=== PATIENT | male | born 1975 | race Caucasian/White ===

== ENCOUNTER 2016-08-12 23:15 | Emergency (ER) | payer SELFPAY ==
--- NOTE | 2016-08-12 23:27 | EDM.PDOC ---
ED HPI GENERAL MEDICAL PROBLEM - General Chief Complaint: Lower Extremity Injury/Pain Stated Complaint: UNK Time Seen by Provider: 08/12/16 23:27 Source of Information: Reports: Patient - History of Present Illness INITIAL COMMENTS - FREE TEXT/NARRATIVE: HISTORY AND PHYSICAL: History of present illness: []Patient presents with left knee pain and swelling for 2 days increasing in severity did twist his left knee actually rotating on his left knee Adson's pain he has long history of bursitis concerning the left knee no actual trauma to the lower extremity whatsoever no redness warmth open lesion or exudate entire limb is neurovascularly intact hip and ankle and affected Denies medication chronic illness or disease Review of systems: As per history of present illness and below otherwise all systems reviewed and negative. Past medical history: As per history of present illness and as reviewed below otherwise noncontributory. Surgical history: As per history of present illness and as reviewed below otherwise noncontributory. Social history: No reported history of drug or alcohol abuse. Family history: As per history of present illness and as reviewed below otherwise noncontributory. Physical exam: HEENT: Atraumatic, normocephalic, pupils reactive, negative for conjunctival pallor or scleral icterus, mucous membranes moist, throat clear, neck supple, nontender, trachea midline. Lungs: Clear to auscultation, breath sounds equal bilaterally, chest nontender. Heart: S1S2, regular, negative for clicks, rubs, or JVD. Abdomen: Soft, nondistended, nontender. Negative for masses or hepatosplenomegaly. Negative for costovertebral tenderness. Pelvis: Stable nontender. Genitourinary: Deferred. Rectal: Deferred. Extremities: Atraumatic, negative for cords or calf pain. Neurovascular unremarkable. Neuro: Awake, alert, oriented. Cranial nerves II through XII unremarkable. Cerebellum unremarkable. Motor and sensory unremarkable throughout. Exam nonfocal. Diagnostics: []Knee 3 views CBC uric acid Therapeutics: []Toradol 60 IM Solu-Medrol 125 mg im Indomethacin Colchrys Impression: []Left knee pain Acute gout Definitive disposition and diagnosis as appropriate pending reevaluation and review of above. 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 Pain Score (Numeric/FACES): 10 - Related Data Allergies Allergy/AdvReac Type Severity Reaction Status Date / Time No Known Allergies Allergy Verified 08/12/16 23:18 Home Meds: Home Meds [place] Carbonate 100 cap PO BID 08/12/16 [History] QUEtiapine [SEROquel] 100 mg PO BID 08/12/16 [History] Past Medical History Other HEENT History: left eye surgery Social & Family History - Tobacco Use Smoking Status *Q: Never Smoker - Alcohol Use Days Per Week of Alcohol Use: 7 Number of Drinks Per Day: 6 Total Drinks Per Week: 42 - Recreational Drug Use Recreational Drug Use: No Drug Use in Last 12 Months: Yes Recreational Drug Type: Reports: Kevin, Ida Review of Systems - Review of Systems Review Of Systems: ROS reveals no pertinent complaints other than HPI. ED EXAM, GENERAL - Physical Exam Exam: See Below Course - Vital Signs Last Recorded V/S: Last Vital Signs Temp 37.1 C 08/13/16 00:32 Pulse 97 08/13/16 00:32 Resp 20 08/13/16 00:32 BP 140/78 08/13/16 00:32 Pulse Ox 99 08/13/16 00:32 - Orders/Labs/Meds Orders: Active Orders 24 hr Category Date Time Status Knee 1V or 2V Lt [CR] Stat Exams 08/12/16 23:26 Taken Labs: Laboratory Tests 08/12/16 08/12/16 Range/Units 23:52 23:52 WBC 9.41 (4.0-11.0) K/uL RBC 4.26 L (4.50-5.90) M/uL Hgb 13.2 (13.0-17.0) g/dL Hct 39.9 (38.0-50.0) % MCV 93.7 (80.0-98.0) fL MCH 31.0 (27.0-32.0) pg MCHC 33.1 (31.0-37.0) g/dL RDW Std Deviation 46.2 (28.0-62.0) fl RDW Coeff of Angely 14 (11.0-15.0) % Plt Count 176 (150-400) K/uL MPV 10.40 (7.40-12.00) fL Neut % (Auto) 67.7 (48.0-80.0) % Lymph % (Auto) 17.9 (16.0-40.0) % Dawes % (Auto) 12.8 (0.0-15.0) % Eos % (Auto) 1.4 (0.0-7.0) % Baso % (Auto) 0.2 (0.0-1.5) % Neut # (Auto) 6.4 H (1.4-5.7) K/uL Lymph # (Auto) 1.7 (0.6-2.4) K/uL Dawes # (Auto) 1.2 H (0.0-0.8) K/uL Eos # (Auto) 0.1 (0.0-0.7) K/uL Baso # (Auto) 0.0 (0.0-0.1) K/uL Nucleated RBC % 0.0 /100WBC Nucleated RBCs # 0 K/uL Uric Acid 8.3 H (2.1-7.4) mg/dL Departure - Departure Time of Disposition: 00:42 Disposition: Home, Self-Care 01 Condition: Good Clinical Impression: Acute gout - Discharge Information Forms: ED Department Discharge Additional Instructions: Medication as prescribed Return symptoms persist or worsen Follow-up with primary care in 2 weeks [facility] - Primary Care [address] [place] [address] The following information is given to patients seen in the emergency department who are being discharged to home. This information is to outline your options for follow-up care. We provide all patients seen in our emergency department with a follow-up referral. The need for follow-up, as well as the timing and circumstances, are variable depending upon the specifics of your emergency department visit. If you don't have a primary care physician on staff, we will provide you with a referral. We always advise you to contact your personal physician following an emergency department visit to inform them of the circumstance of the visit and for follow-up with them and/or the need for any referrals to a consulting specialist. The emergency department will also refer you to a specialist when appropriate. This referral assures that you have the opportunity for follow-up care with a specialist. All of these measure are taken in an effort to provide you with optimal care, which includes your follow-up. Under all circumstances we always encourage you to contact your private physician who remains a resource for coordinating your care. When calling for follow-up care, please make the office aware that this follow-up is from your recent emergency room visit. If for any reason you are refused follow-up, please contact the [facility] emergency department at and asked to speak to the emergency department charge nurse. - My Orders Last 24 Hours: My Active Orders 08/12/16 23:26 Knee 1V or 2V Lt [CR] Stat - Assessment/Plan Last 24 Hours: My Active Orders 08/12/16 23:26 Knee 1V or 2V Lt [CR] Stat
[2016-08-13] MEDS ORDERED: methylPREDNISolone Sodium Succinate 125 MG/2 ML SDV IM ONE (00:43)
[2016-08-13 01:01] VITALS: BP 118/64
--- NOTE | 2016-08-13 16:08 | CR ---
EXAM DATE: 08/12/16 PATIENT'S AGE: 41 Patient: RIGOBERTO MENDEZ Facility: [place], [place] Site . Site : [id number] Study: XRay Knee Left [id number]/[id number] 11:44:53 PM Ordering Physician: Myra Hinkle Final Report: INDICATION: left knee pain. TECHNIQUE: Knee radiograph 2 views left COMPARISON: None FINDINGS: Bones: Alignment is normal. On the lateral exam, the cortex of the fibular head is not well defined. Joint spaces: Unremarkable. No knee effusion is seen on the lateral exam. Soft tissues: Unremarkable. No radiopaque foreign bodies are seen. IMPRESSION: 1. On the lateral exam, the cortex of the fibular head is not well defined. This can be due to an osteophyte but correlation with physical exam for focal tenderness, especially if there is history of trauma, to exclude a fracture. Dictated by: Michael Tiwari MD @ 08/12/2016 23:48:05 (Electronic Signature) Report Signed by Proxy. HAIM
== END 2016-08-13 00:55 | disposition home or self-care (01) ==
LOC: MW.ED 23:15
DX: M25.561 Pain in right knee (principal); M10.9 Gout, unspecified; Z98.890 Other specified postprocedural states
CPT/HCPCS: 36415; 73560; 84550; 85025; 96374; 99284; J2930; 99282

== ENCOUNTER 2017-07-03 07:49 | Emergency (ER) | payer MEDICAID ==
--- NOTE | 2017-07-03 08:16 | EDM.PDOC ---
ED HPI GENERAL MEDICAL PROBLEM - General Chief Complaint: Behavioral/Psych Stated Complaint: MENTAL HEALTH Time Seen by Provider: 07/03/17 07:56 - History of Present Illness INITIAL COMMENTS - FREE TEXT/NARRATIVE: HISTORY AND PHYSICAL: History of present illness: The patient is a 42-year-old male who is here with police after he was found by them standing on a car in a parking lot howling at other cars. The patient says he does have a history of paranoia and is supposed to be a medications including lithium and Seroquel which he has not taken for at least one year due to his "inability to pay for them". He also tells me he has a history of hypertension for which he used to take a beta geovani and one other medication but he again has not taken that medication for at least one year. He denies suicidal or homicidal ideation here in the ED but does admit to me that he drank alcohol last night which may have contributed to some of his behavior today. He tells nursing that he does have a history of paranoia and again this may have played into why he is here for his behavior this morning. When police arrived he stated to them that he wants to get back on his medications and asked to come here for evaluation. Patient denies chest pain shortness of breath abdominal pain vomiting or diarrhea and has been passing his urine normally. When I query him about his hydration he says he did not drink much water last night but did drink alcohol.. The patient tells me he does eat a lot of high sodium containing foods including Ramen noodles on a regular basis and knows that is bad for his blood pressure he says he does not know how to connect for any care as an outpatient and when asked if he would like resources for that he agrees. Patient denies any head neck or back pain. He has no numbness or tingling or weakness in his extremities or pain in his extremities. Review of systems: As per history of present illness and below otherwise all systems reviewed and negative. Past medical history: As per history of present illness and as reviewed below otherwise noncontributory. Surgical history: As per history of present illness and as reviewed below otherwise noncontributory. Social history: No reported history of drug or alcohol abuse. Family history: As per history of present illness and as reviewed below otherwise noncontributory. Physical exam: General: Well-developed well-nourished man who is nontoxic beaking calmly and quietly in the ED and is very cooperative. His vital signs are noted by me. HEENT: Atraumatic, normocephalic, pupils reactive, negative for conjunctival pallor or scleral icterus, mucous membranes moist, throat clear, neck supple, nontender, trachea midline. Lungs: Clear to auscultation, breath sounds equal bilaterally, chest nontender. Heart: S1S2, regular rhythm slightly tachycardic rate on my evaluation, negative for clicks, rubs, or JVD. Abdomen: Soft, nondistended, nontender. Negative for masses or hepatosplenomegaly. NABS Pelvis: Stable nontender. Genitourinary: Deferred. Rectal: Deferred. Extremities: Atraumatic, negative for cords or calf pain. Neurovascular unremarkable. No pedal edema full range of motion of all extremities and no palpable deformities or tenderness. Neuro: Awake, alert, oriented. Cranial nerves II through XII unremarkable. Cerebellum unremarkable. Motor and sensory unremarkable throughout. Exam nonfocal. Skin: No evidence of any diaphoresis, turgor is normal and there is no evidence of any overt rashes or lesions Diagnostics: Accu-Chek Therapeutics: I discussed with the patient his recent alcohol use and trying to refrain from doing that going forward and to push hydration with water and Gatorade today. I also advised him to try to reduce or stop eating high sodium containing foods such as Ramen noodles and other processed foods as this is contributing to his blood pressure. In the ED he is denying chest pain shortness of breath headache neurosensory changes abdominal issues or urinary complaints and I strongly advised him to connect with one of our clinic providers to get back on blood pressure medications as well as his other meds. We will give him resources for [facility] as well as this is one of the desires of the patient in my conversation with him to get back on his medications. He is currently not exhibiting any suicidal or homicidal ideation. Police the bedside inform me he is not under arrest for his behaviors this morning and they're happy to facilitate his disposition. Impression: Encounter for medical screening exam for inappropriate behavior, stable; history of paranoia and hypertension with medication noncompliance stable Definitive disposition and diagnosis as appropriate pending reevaluation and review of above. - Related Data Allergies Allergy/AdvReac Type Severity Reaction Status Date / Time No Known Allergies Allergy Verified 07/03/17 07:56 Home Meds: Home Meds [place] Carbonate 100 cap PO BID 08/12/16 [History] QUEtiapine [SEROquel] 100 mg PO BID 08/12/16 [History] Past Medical History HEENT History: Reports: Other (See Below) Other HEENT History: left eye surgery Cardiovascular History: Reports: Hypertension Respiratory History: Reports: None Gastrointestinal History: Reports: None Genitourinary History: Reports: None Musculoskeletal History: Reports: None Neurological History: Reports: None Psychiatric History: Reports: Other (See Below) Other Psychiatric History: Paronia Endocrine/Metabolic History: Reports: None Hematologic History: Reports: None Immunologic History: Reports: None Oncologic (Cancer) History: Reports: None Dermatologic History: Reports: None - Infectious Disease History Infectious Disease History: Reports: Chicken Pox - Past Surgical History Head Surgeries/Procedures: Reports: None HEENT Surgical History: Reports: None Cardiovascular Surgical History: Reports: None Respiratory Surgical History: Reports: None GI Surgical History: Reports: None Male Surgical History: Reports: None Endocrine Surgical History: Reports: None Neurological Surgical History: Reports: None Musculoskeletal Surgical History: Reports: None Oncologic Surgical History: Reports: None Dermatological Surgical History: Reports: None Social & Family History - Family History Family Medical History: Noncontributory - Tobacco Use Smoking Status *Q: Never Smoker Second Hand Smoke Exposure: No - Caffeine Use Caffeine Use: Reports: None - Recreational Drug Use Recreational Drug Use: Yes Recreational Drug Type: Reports: Methamphetamine Recreational Drug Use Frequency: Monthly ED ROS GENERAL - Review of Systems Review Of Systems: ROS reveals no pertinent complaints other than HPI. ED EXAM, GENERAL - Physical Exam Exam: See Below (see dictation) Course - Vital Signs Last Recorded V/S: Last Vital Signs Temp 36.7 C 07/03/17 07:57 Pulse 121 H 07/03/17 07:57 Resp 18 07/03/17 07:57 BP 181/126 H 07/03/17 07:57 Pulse Ox 96 07/03/17 07:57 - Orders/Labs/Meds Orders: Active Orders 24 hr Category Date Time Status Blood Glucose Check, Bedside [RC] ONETIME Care 07/03/17 07:57 Active Departure - Departure Time of Disposition: 08:16 Disposition: Home, Self-Care 01 Condition: Good Clinical Impression: Encounter for medical screening examination - Discharge Information Additional Instructions: The following information is given to patients seen in the emergency department who are being discharged to home. This information is to outline your options for follow-up care. We provide all patients seen in our emergency department with a follow-up referral. The need for follow-up, as well as the timing and circumstances, are variable depending upon the specifics of your emergency department visit. If you don't have a primary care physician on staff, we will provide you with a referral. We always advise you to contact your personal physician following an emergency department visit to inform them of the circumstance of the visit and for follow-up with them and/or the need for any referrals to a consulting specialist. The emergency department will also refer you to a specialist when appropriate. This referral assures that you have the opportunity for followup care with a specialist. All of these measure are taken in an effort to provide you with optimal care, which includes your followup. Under all circumstances we always encourage you to contact your private physician who remains a resource for coordinating your care. When calling for followup care, please make the office aware that this follow-up is from your recent emergency room visit. If for any reason you are refused follow-up, please contact the [facility] emergency department at and ask to speak to the emergency department charge nurse. [facility] Primary [facility]- Internal Medicine and Family [address] [id number] Please refrain from alcohol use and try to reduce or stop eating high sodium containing foods such as Ramen noodles and other processed foods as this contributes to your blood pressure. Please call and follow-up in our clinic with one of our providers to address her blood pressure and to restart medications as needed. Please also connect with [facility] with resources you have been given today to resume your medications that you're on previously and/or to get new care and evaluation on outpatient basis. Return to ER as needed and as discussed. - My Orders Last 24 Hours: My Active Orders 07/03/17 07:57 Blood Glucose Check, Bedside [RC] ONETIME - Assessment/Plan Last 24 Hours: My Active Orders 07/03/17 07:57 Blood Glucose Check, Bedside [RC] ONETIME
[2017-07-03 08:28] VITALS: BP 169/117
== END 2017-07-03 08:27 | disposition home or self-care (01) ==
LOC: MW.ED 07:49
DX: Z13.9 Encounter for screening, unspecified (principal); I10 Essential (primary) hypertension; Z79.899 Other long term (current) drug therapy; Z91.14 Patient's other noncompliance with medication regimen
CPT/HCPCS: 99283

== ENCOUNTER 2019-03-04 15:05 | Emergency (ER) | payer SELFPAY ==
--- NOTE | 2019-03-04 16:01 | EDM.PDOC ---
ED HPI GENERAL MEDICAL PROBLEM - General Chief Complaint: Lower Extremity Injury/Pain Stated Complaint: GOUT Time Seen by Provider: 03/04/19 15:14 Source of Information: Reports: Patient History Limitations: Reports: No Limitations - History of Present Illness INITIAL COMMENTS - FREE TEXT/NARRATIVE: HISTORY AND PHYSICAL: History of present illness: Patient is a 43-year-old male who presents to the ED today with concern of possible gout flare in his right knee. Patient states he has been having pain of the right knee which feels exactly like all of his other gout flares over the past 1 to 2 days. Patient states he has been having issues with gout over the past several years and often gets flame up in his left knee or his right knee. Patient states he has been living in [place] and has been seen and evaluated and there for his gout but has not followed up with a primary care provider here in some time to continue care. Patient states that sometimes he gets gout in his left knee but has also been getting it in his right. Patient states in the past he has been given indomethacin which has helped his symptoms. Patient denies any trauma or injury to the knee or any other symptoms or concerns. Patient denies fever, chills, chest pain, shortness of breath, or cough. Denies headache, neck stiff ness, change in vision, syncope, or near syncope. Denies nausea, vomiting, abdominal pain, diarrhea, constipation, or dysuria. Has not noted any blood in urine or stool. Patient has been eating and drinking appropriately. Review of systems: As per history of present illness and below otherwise all systems reviewed and negative. Past medical history: As per history of present illness and as reviewed below otherwise noncontributory. Surgical history: As per history of present illness and as reviewed below otherwise noncontributory. Social history: See social history for further information Family history: As per history of present illness and as reviewed below otherwise noncontributory. Physical exam: General: Patient is alert, oriented, and in no acute distress. Patient sitting comfortably on exam table. HEENT: Atraumatic, normocephalic, pupils equal and reactive bilaterally, negative for conjunctival pallor or scleral icterus, mucous membranes moist, TMs normal bilaterally, throat clear, neck supple, nontender, trachea midline. No drooling or trismus noted. No meningeal signs. No hot potato voice noted. Lungs: Clear to auscultation, breath sounds equal bilaterally, chest nontender. Heart: S1S2, regular rate and rhythm without overt murmur Abdomen: Soft, nondistended, nontender. Negative for masses or hepatosplenomegaly. Negative for costovertebral tenderness. Pelvis: Stable nontender. Genitourinary: Deferred. Rectal: Deferred. Skin: Intact, warm, dry. No lesions or rashes noted. Extremities: Atraumatic, negative for cords or calf pain. Neurovascular unremarkable. Full ROM of bilateral lower extremities without pain or difficulty. Right knee is slightly more mildly warm then the left with mild edema. No erythema. Neuro: Awake, alert, oriented. Cranial nerves II through XII unremarkable. Cerebellum unremarkable. Motor and sensory unremarkable throughout. Exam nonfocal. Notes: Discussed importance for establishing care with a primary care provider. Voices understanding and is agreeable to plan of care. Denies any further questions or concerns at this time. Diagnostics: None Therapeutics: None Prescription: Indomethacin Impression: Acute gout, right knee Plan: 1. Take medication as prescribed. Follow-up and establish care with a primary care provider as discussed. 2. Return to the ED as needed and as discussed. Definitive disposition and diagnosis as appropriate pending reevaluation and review of above. right ankle/knee Pain Score (Numeric/FACES): 10 - Related Data Allergies Allergy/AdvReac Type Severity Reaction Status Date / Time No Known Allergies Allergy Verified 03/04/19 15:22 Home Meds: Home Meds . [No Known Home Meds] 03/04/19 [History] Past Medical History HEENT History: Reports: Other (See Below) Other HEENT History: left eye surgery Cardiovascular History: Reports: Hypertension Respiratory History: Reports: None Gastrointestinal History: Reports: None Genitourinary History: Reports: None Musculoskeletal History: Reports: Gout Neurological History: Reports: None Psychiatric History: Reports: Other (See Below) Other Psychiatric History: Paronia Endocrine/Metabolic History: Reports: None Hematologic History: Reports: None Immunologic History: Reports: None Oncologic (Cancer) History: Reports: None Dermatologic History: Reports: None - Infectious Disease History Infectious Disease History: Reports: Chicken Pox - Past Surgical History Head Surgeries/Procedures: Reports: None HEENT Surgical History: Reports: None Cardiovascular Surgical History: Reports: None Respiratory Surgical History: Reports: None GI Surgical History: Reports: None Male Surgical History: Reports: None Endocrine Surgical History: Reports: None Neurological Surgical History: Reports: None Musculoskeletal Surgical History: Reports: None Oncologic Surgical History: Reports: None Dermatological Surgical History: Reports: None Social & Family History - Family History Family Medical History: Noncontributory - Tobacco Use Smoking Status *Q: Never Smoker Second Hand Smoke Exposure: No - Caffeine Use Caffeine Use: Reports: Coffee, Energy Drinks - Alcohol Use Days Per Week of Alcohol Use: 7 Number of Drinks Per Day: 3 Total Drinks Per Week: 21 - Recreational Drug Use Recreational Drug Use: No Review of Systems - Review of Systems Review Of Systems: Comprehensive ROS is negative, except as noted in HPI. ED EXAM, GENERAL - Physical Exam Exam: See Below (see dictation) Course - Vital Signs Last Recorded V/S: Last Vital Signs Temp 97.4 F 03/04/19 15:20 Pulse 99 03/04/19 15:20 Resp 18 03/04/19 15:20 BP 184/100 H 03/04/19 15:20 Pulse Ox 96 03/04/19 15:20 Departure - Departure Time of Disposition: 16:01 Disposition: Home, Self-Care 01 Clinical Impression: Acute gout Qualifiers: Gout site: knee Gout etiology: unspecified cause Laterality: right Qualified Code(s): M10.9 - Gout, unspecified - Discharge Information Referrals: PCP,None [Primary Care Provider] - Additional Instructions: The following information is given to patients seen in the emergency department who are being discharged to home. This information is to outline your options for follow-up care. We provide all patients seen in our emergency department with a follow-up referral. The need for follow-up, as well as the timing and circumstances, are variable depending upon the specifics of your emergency department visit. If you don't have a primary care physician on staff, we will provide you with a referral. We always advise you to contact your personal physician following an emergency department visit to inform them of the circumstance of the visit and for follow-up with them and/or the need for any referrals to a consulting specialist. The emergency department will also refer you to a specialist when appropriate. This referral assures that you have the opportunity for follow-up care with a specialist. All of these measure are taken in an effort to provide you with optimal care, which includes your follow-up. Under all circumstances we always encourage you to contact your private physician who remains a resource for coordinating your care. When calling for follow-up care, please make the office aware that this follow-up is from your recent emergency room visit. If for any reason you are refused follow-up, please contact the [facility] Emergency Department at and asked to speak to the emergency department charge nurse. [facility] [address] [place] [id number] [facility] [address] [place] [id number] 1. Take medication as prescribed. Follow-up and establish care with a primary care provider as discussed. 2. Return to the ED as needed and as discussed. Sepsis Event Note - Evaluation Sepsis Screening Result: No Definite Risk - Focused Exam Vital Signs: Vital Signs Temp Pulse Resp BP Pulse Ox 03/04/19 15:20 97.4 F 99 18 184/100 H 96 Date Exam was Performed: 03/04/19 Time Exam was Performed: 15:57
[2019-03-04 16:20] VITALS: BP 145/103; PULSE 92
== END 2019-03-04 16:19 | disposition home or self-care (01) ==
LOC: MW.ED 15:05
DX: M10.9 Gout, unspecified (principal); I10 Essential (primary) hypertension
CPT/HCPCS: 99283